=== PATIENT | female | born 2000 | race Caucasian/White ===

== ENCOUNTER 2022-01-12 19:52 | Emergency (ER) | payer BC ==
[~2022-01-12] VITALS: Ht 162.6 cm; Wt 96.6 kg
[2022-01-12 19:57] VITALS: BP 141/73
--- NOTE | 2022-01-12 20:01 | NUR ---
PT TAKEN TO BED 11.
--- NOTE | 2022-01-12 20:09 | NUR ---
Dr. Fields with pt for MSE
[2022-01-12] MEDS ORDERED: DEXAMETHASONE 10 MG/ML VIAL IM ONE (20:20)
[2022-01-12 21:35] VITALS: BP 134/79
--- NOTE | 2022-01-12 21:35 | NUR ---
d/c with [facility]. d/c education given. opportunity to ask questions given and answered. no rx given.
== END 2022-01-12 21:36 | disposition home or self-care (01) ==
LOC: MED 19:52
DX: T78.2XXA Anaphylactic shock, unspecified, initial encounter (principal); Z91.013 Allergy to seafood
CPT/HCPCS: 96372; 99283; J1100